=== PATIENT | male | born 1945 | race Caucasian/White ===

== ENCOUNTER 2016-10-29 11:25 | Emergency (ER) | payer OTHER, MEDICARE ==
[~2016-10-29] VITALS: Ht 185.4 cm; Wt 106.6 kg
[2016-10-29 11:45] VITALS: BP 117/73
--- NOTE | 2016-10-29 12:42 | ED UPPER/LOWER EXTREMITY COMPL ---
History of Present Illness General Chief Complaint: Lower Extremity Problems Stated Complaint: L KNEE PAIN Source: patient Exam Limitations: no limitations Vital Signs & Intake/Output Vital Signs & Intake/Output Vital Signs Date Time Temp Pulse Resp B/P B/P Pulse O2 O2 Flow FiO2 Mean Ox Delivery Rate 10/29 1145 97.7 86 18 117/73 97 Room Air Allergies Uncoded Allergies: PCN (Mild, RASH 10/29/16) Triage Note: PT STATES THAT HE WAS TRYING TO START HIS CHAIN SAW WHEN THE BUTT END HIT HIM ON THE SIDE OF HIS L KNEE, STATES THAT HE HAS INCREASED SWELLING AND PAIN, WENT TO HIS DOCTOR AND WAS SENT TO HAVE HIS L KNEE DRAINED. REFUSES MEDS AT TRIAGE Triage Nurses Notes Reviewed? yes Onset: Abrupt Duration: day(s): (1) Timing: no prior history Severity: moderate Severity Numbers: 7 Pain/Injury Location: Left: Knee. Method of Injury: direct blow Modifying Factors: Improves With: immobilization. Worsens With: movement. HPI: Patient is a 71-year-old male presenting to the emergency department with chief complaint of left knee pain that started yesterday gradually getting worse today. Patient reports that he accidentally hit the outside of his left knee with the blunt end of a saw. Since then he's had gradual increasing pain. This morning he woke up and his left knee was swollen. Denies any fevers or chills. He does report decreased range of motion of the left knee secondary to swelling. Has been trying to elevate and ice with little relief. No history of similar injury in the past. Denies any other injury. No numbness or tingling. Denies Pain. Denies nausea vomiting fevers or chills chest pain or shortness of breath. (WAYNE BALTAZAR) Past History Travel History Traveled to [place] past 21 day No Medical History Any Pertinent Medical History? see below for history Neurological: NONE EENT: NONE Cardiovascular: hyperlipidemia Respiratory: NONE Gastrointestinal: NONE Hepatic: NONE Renal: NONE Musculoskeletal: rheumatoid arthritis Psychiatric: NONE Endocrine: NONE Blood Disorders: NONE Cancer(s): NONE [employer] FORMER/Reproductive: NONE Surgical History Surgical History: non-contributory Psychosocial History What is your primary language Lebanese Tobacco Use: Current Daily Use Daily Tobacco Use Amount/Type: => 5 Cigarettes daily ETOH Use: denies use Illicit Drug Use: denies illicit drug use Family History Hx Contributory? No (MYRTLE BLEVINS,WAYNE) Review of Systems Review of Systems Constitutional: Reports: no symptoms. Comments Review of systems: See HPI, All other systems negative. Constitutional, no chills fever or weight loss HEENT: No visual changes no sore throat no congestion Cardiovascular: No chest pain ,palpitation Skin, no jaundice no rashes Respiratory: No dyspnea cough sputum or hemoptysis GI: No nausea no vomiting Muscle skeletal: no back pain, no neck pain, Neurologic: No numbness no confusion Psych: No stress anxiety or depression,. Heme/endocrine: No bruising no bleeding no polyuria or polydipsia Immunology: No splenectomy or history of AIDS (MYRTLE BLEVINS,WAYNE) Physical Exam Physical Exam General Appearance: well developed/nourished, no apparent distress, alert, comfortable Comments: Well-developed well-nourished no apparent distress. HEENT: Atraumatic, extraocular motion intact Neck: Normal inspection, full range of motion. Back: Nontender Respiratory: No respiratory distress Extremities: Mild edema noted on the lateral aspect of the left patella. No tenderness to palpation directly over the left patella. Limited range of motion of left knee secondary to pain. Pedal pulses are 2+ bilaterally. No calf tenderness to palpation bilaterally. No erythema. Neuro: Alert and oriented x3, motor and sensory intact in lower extremities bilaterally. Psych: Mood affect normal, normal memory normal judgment. (MYRTLE BLEVINS,WAYNE) Progress Differential Diagnosis: contusion, dislocation, fracture, gout, septic arthritis , sprain, tendon injury Plan of Care: Orders Procedure Date/time Status Durable Medical Equipment 10/29 1330 Active Diagnostic Imaging: Viewed by Me: Radiology Read. Discussed w/RAD: Radiology Read. Radiology Impression: PATIENT: YOLANDA COLLINS PRESENT AGE: 71 PATIENT ACCOUNT NO: [id number] : 47 LOCATION: [facility] ORDERING PHYSICIAN: WAYNE BLEVINS SERVICE DATE: 10/29/16-124 EXAM TYPE: RAD - XRY-KNEE COMPLETE LEFT EXAMINATION: XR KNEE, LEFT CLINICAL INFORMATION: Pain status post injury. Rule out fracture or effusion COMPARISON: None TECHNIQUE: Four views of the left knee. FINDINGS: Small to moderate suprapatellar joint effusion is present. Severe medial compartment joint space narrowing with medial marginal osteophytosis. A lesser degree of lateral tibial plateau osteophytosis is present as well. There is enthesopathy of the distal quadriceps tendon attachment and proximal patellar tendon attachment. There is superior and inferior patellar osteophytosis. Patellofemoral joint space narrowing. IMPRESSION: No fracture or dislocation seen. Small to moderate suprapatellar joint effusion. 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 Comments: Patient is afebrile, history of trauma. Likely contusion. Patient will follow- up with orthopedic. (WAYNE BALTAZAR) Departure Departure Time of Disposition: 1326 Disposition: HOME OR SELF CARE Condition: Stable Clinical Impression Primary Impression: Knee effusion Qualifiers: Laterality: left Qualified Code: M25.462 - Effusion, left knee Secondary Impressions: Knee sprain Qualifiers: Encounter type: initial encounter Involved ligament of knee: unspecified ligament Laterality: left Qualified Code: S83.92XA - Sprain of unspecified site of left knee, initial encounter Referrals: KIRAN LU,FATOUMATA Galindo (PCP/Family) NICKOLAS ABRAHAM,LIANG Coronel Additional Instructions: Rest ice and elevate the knee as much as possible. Wear knee immobilizer as much as possible. Use crutch to help with ambulation. He need to follow up with orthopedics as they will likely do an MRI. Return for worsening symptoms or concerns. Take Tylenol to help with pain. Departure Forms: Customer Survey General Discharge Information (WAYNE BALTAZAR) PA/RESIDENTIAL ELECTRICIAN Co-Sign Statement Statement: ED Attending supervision documentation- [X] I saw and evaluated the patient. I have also reviewed all the pertinent lab results and diagnostic results. I agree with the findings and the plan of care as documented in the PA's/RESIDENTIAL ELECTRICIAN's documentation. [X] I have reviewed the ED Record and agree with the PA's/RESIDENTIAL ELECTRICIAN's documentation. [] Additions or exceptions (if any) to the PAs/RESIDENTIAL ELECTRICIAN's note and plan are summarized below: [] (SHELIA ABRAHAM,GOLDEN) Procedures Splinting Location: left knee Manual Alignment Performed: No Pre-Made Type: knee imobilizer Splint: knee immobilizer Splint Applied By: splint applied by other (nursing) Pre-Proc Neuro Vasc Exam: normal Post-Proc Neuro Vasc Exam: normal Progress: Tolerated procedure well. (MYRTLE BLEVINS,WAYNE)
--- NOTE | 2016-10-29 13:22 | RADIOLOGY REPORT ---
EXAMINATION: XR KNEE, LEFT CLINICAL INFORMATION: Pain status post injury. Rule out fracture or effusion COMPARISON: None TECHNIQUE: Four views of the left knee. FINDINGS: Small to moderate suprapatellar joint effusion is present. Severe medial compartment joint space narrowing with medial marginal osteophytosis. A lesser degree of lateral tibial plateau osteophytosis is present as well. There is enthesopathy of the distal quadriceps tendon attachment and proximal patellar tendon attachment. There is superior and inferior patellar osteophytosis. Patellofemoral joint space narrowing. IMPRESSION: No fracture or dislocation seen. Small to moderate suprapatellar joint effusion. 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
== END 2016-10-29 13:45 ==
LOC: ERH 11:25
DX: S83.92XA Sprain of unspecified site of left knee, initial encounter (principal); M25.462 Effusion, left knee; W22.8XXA Striking against or struck by other objects, initial encounter; Y93.9 Activity, unspecified; Y92.9 Unspecified place or not applicable
CPT/HCPCS: 73562-LT